=== PATIENT | male | born 1970 | race Caucasian/White ===

== ENCOUNTER → 2021-05-15 | Day surgery (SDC) | payer OTHER ==
[~2021-05-15] MED LIST: BUPIVACAINE MPF 0.25% 10 ML VIAL. ONE; DEXAMETHASONE SOD PHOS 10 MG/ML VIAL. ONE; IOHEXOL 300 MG/ML 50 ML VIAL. ONE; LIDOCAINE 1% PF 30 ML VIAL. ONE
[2021-05-15 12:55] VITALS: BP 133/92
== END | disposition home or self-care (01) ==
LOC: SURG 11:48
PROVIDERS: ATTEND Anesthesiology
DX: M47.26 Other spondylosis with radiculopathy, lumbar region (principal); M51.16 Intervertebral disc disorders with radiculopathy, lumbar region; M19.90 Unspecified osteoarthritis, unspecified site; G47.30 Sleep apnea, unspecified; Z79.899 Other long term (current) drug therapy; Z98.890 Other specified postprocedural states
CPT/HCPCS: 64483; 64484; A4930; J1100; J3490; Q9967